=== PATIENT | male | born 1980 | race Caucasian/White ===

== ENCOUNTER 2025-10-09 06:36 | Day surgery (SDC) | payer BC, SELFPAY | END 2025-10-09 09:01 | disposition home or self-care (01) | LOC: GI 06:36 | PROVIDERS: ATTENDING PHYSICIAN Surgery | DX: Z12.11 Encounter for screening for malignant neoplasm of colon (principal); Z98.0 Intestinal bypass and anastomosis status; K57.30 Diverticulosis of large intestine without perforation or abscess without bleeding; K51.40 Inflammatory polyps of colon without complications | CPT/HCPCS: 45380; 88305 ==